=== PATIENT | male | born 2005 | race Caucasian/White ===

== ENCOUNTER 2024-02-20 22:08 | Emergency (ER) | payer BC, SELFPAY ==
[2024-02-20 22:10] VITALS: BP 114/81
[2024-02-20 22:33] LABS: COVID-19 Antigen Negative (Negative)
--- NOTE | 2024-02-20 22:45 | ED.GENMED ---
History of Present Illness
General
Chief Complaint: Fever
Source: patient
Exam Limitations: none
Time Seen by Provider: 02/20/24 22:36
History of Present Illness
History of Present Illness:
See MDM
Past History
Past History
ED Past Medical History: None
ED Past Surgical History: None
Social History
Tobacco: Non-smoker
Alcohol: None
Phy Exam
Physical Exam
Physical Exam:
See MDM
Course
Orders/Labs/Results
Orders:
Orders
02/20/24 22:16
COVID-19 Antigen Urgent
Source: Nasal Swab
02/20/24 23:18
Lyme Progressive Urgent
Monotest Urgent
Influenza A+B Rapid Molecular Urgent
JOSE DE JESUS Source: Nasal Swab
Specimen Description:
02/20/24 23:19
Rapid Strep Group A Urgent
JOSE DE JESUS Source: Throat/Pharynx
Specimen Description:
Date Specimen was Collected: 02/20/24
Time Specimen was Collected: 22:48
Abnormal Lab Results
02/20/24
23:18
Monoscreen Positive A
(Negative)
Vital Signs
Initial and Last Documented VS:
Initial Vital Signs
Temp Pulse Resp BP Pulse Ox
98.4 F 85 18 114/81 99
02/20/24 22:10 02/20/24 22:10 02/20/24 22:10 02/20/24 22:10 02/20/24 22:10
Last Documented Vital Signs
Temp Pulse Resp BP Pulse Ox
98.4 F 85 18 114/81 99
02/20/24 22:10 02/20/24 22:10 02/20/24 22:10 02/20/24 22:10 02/20/24 22:10
MDM/Problems Addressed
Differential Diagnosis Includes:
HPI and MDM Narrative:
18-year-old male presenting for evaluation of fever and muscle aches. This been ongoing for the past day or so. Symptoms do improve with Motrin. Patient believes he could have a viral syndrome but to make sure he was not contagious. He denies
any rash, cough or chest pain. On exam, he is well-appearing nontoxic. Posterior pharynx mildly erythematous. No meningismus. Lungs clear. Abdomen soft and nontender. Discussed likely viral syndrome but will obtain strep throat testing,
monotest and Lyme's testing
Physical exam
General: Well appearing and non-toxic
HEENT: protecting airway. Posterior pharynx mildly erythematous. No exudate
Neck: No meningismus, supple
CV: No evidence of cyanosis
Resp: No accessory muscle use. Lungs clear
Abd: Non-distended and nontender
Extremities: No deformities
Neuro: alert
Psych: Normal affect
Skin: Intact. No rash
Problems Addressed including Acute and Chronic Conditions affecting care:
1. Fever
Acuity: acute
Prognosis: stable
Details: Likely viral syndrome. Will obtain strep throat testing, COVID test, influenza testing, Lyme's testing and mono testing. No obvious source of infection noted on exam
Updates
Patient found to be mono positive. He believes he got this from sharing vapes and cigarettes. Discussed return precautions and he indicates he does not play contact sports in regards to spleen injury
Differential Diagnosis (but not limited to): Viral syndrome, strep throat
Testing considered: Chest x-ray but lungs clear
Drug therapy (if applicable): OTC meds, please see d/c instruction regarding Rx drugs
Amount and/or Complexity of Data Reviewed
Clinical info obtained from: Patient
External data reviewed: N/A
Labs I independently reviewed (but not limited to): Monotest positive
Radiology: N/A
Pulse Ox: not hypoxic
EKG independently reviewed: N/A
Family Specialist: N/A
Critical Care: N/A
Risk of Complication:
Social Determinants of health: Good social support
Discussed with other providers: N/A
Escalation of Care includes Admit/Obs: After being observed in the Emergency Department, pt stable for discharge.
Occasional wrong word or 'sound a like' substitutions may have occurred due to the inherent limitations of voice recognition software. Read the chart carefully and recognize, using context, where substitutions have occurred.
*Critical Care Note
Total Time (30-74mins, 75-104mins- exclusive of procedures): Not Applicable
ED Attending Note
-
Portions of this chart may have been created with voice recognition software.� Occasional wrong word or��sound alike� substitutions may have occurred due to the inherent limitations of voice recognition software.
Discharge Plan
Departure
Patient Disposition: Home (Routine Discharge)
Date of Disposition: 02/20/24
Time of Disposition: 23:57
Patient with high blood pressure during this ER visit?: No
Discharge Problem:
Mononucleosis
Instructions: Mononucleosis
Prescriptions:
No Action
No Current Medications
0
Referrals:
NONE,* [Family Provider] -
Stand Alone Forms: Return to Work
Activity Restrictions/Additional Instructions:
Please return for any worsening symptoms.
You may return at any time if you have further concerns.
Please follow up with your doctor at the first available appointment, preferably this week.
Thank you for choosing [facility].
Interventions
Interventions:
*Risk Screen - Suicide Last Done: 02/20/24 22:10
*General Assessment Last Done: 02/20/24 22:10
*Neglect/Abuse Screening Last Done: 02/20/24 22:10
ED- Neurological Assessment Last Done: 02/20/24 23:18
ED-Skin Assessment Last Done: 02/20/24 23:18
Discharge Date and Time
Print Language: IRISH
[2024-02-20 23:47] LABS: Monotest Positive (Negative)
[2024-02-22 11:34] LABS: Lyme Antibody Screen, EIA Negative (Negative)
== END 2024-02-21 00:08 | disposition home or self-care (01) ==
LOC: EMR 22:08
PROVIDERS: EMERGENCY PHYSICIAN Student in an Organized Health Care Education/Training Program
DX: B27.90 Infectious mononucleosis, unspecified without complication (principal); Z11.52 Encounter for screening for COVID-19
CPT/HCPCS: 99283; 86308; 86618; 87070; 87502; 87811; 87880